=== PATIENT | female | born 1975 | race African-American/Black ===

== ENCOUNTER 2016-11-07 08:09 | Day surgery (SDC) | payer BC ==
--- NOTE | ~2016-11-07 | EGD ---
EGD REPORT [facility] [address] [id number] NAME: LEYDI HARRINGTON : [birth year] STATUS : REG [facility]#: [id number] AGE: 41 ADM/REG DATE : 11/07/16 MR#: [id number] REPORT SERV DATE: 11/07/16 DICTATED BY: RAEANN NARAYAN DATE: 11/07/16 REPORT STATUS : Draft TRANSCRIBED BY: [facility] DATE: 11/07/16 [facility] Center Patient Name: Leydi Harrington Date of : 1975 Attending MD: RAEANN NARAYAN MD Procedure Date No Time: 11/07/2016 Procedure: Upper GI endoscopy Indications: Epigastric abdominal pain Referring MD: KRIS GONZALEZ MD Medicines: Propofol per Anesthesia Complications: No immediate complications. Procedure: Pre-Anesthesia Assessment: - ASA Grade Assessment: II - A patient with mild systemic disease. After obtaining informed consent, the endoscope was passed under direct vision. Throughout the procedure, the patient's blood pressure, pulse, and oxygen saturations were monitored continuously. The GIF [id number] was introduced through the mouth, and advanced to the third part of duodenum. The upper GI endoscopy was accomplished without difficulty. The patient tolerated the procedure well. Findings: The exam was otherwise without abnormality. The cardia and gastric fundus were normal on retroflexion. Impression: - The examination was otherwise normal. Recommendation: - Return to my office in 1 month. Procedure Code(s): --- Professional --- 84163, Esophagogastroduodenoscopy, flexible, transoral; diagnostic, including collection of specimen(s) by brushing or washing, when performed (separate procedure) Diagnosis Code(s): --- Professional --- R10.13, Epigastric pain CPT copyright 2013 [employer]. All rights reserved. The codes documented in this report are preliminary and upon respiratory therapy director review may be revised to meet current compliance requirements. EGD REPORT [facility] [address] [address] NAME: LEYDI HARRINGTON : [birth year] STATUS : REG [facility]#: [id number] AGE: 41 ADM/REG DATE : 11/07/16 MR#: [id number] REPORT SERV DATE: 11/07/16 DICTATED BY: RAEANN NARAYAN. DATE: 11/07/16 REPORT STATUS : Draft TRANSCRIBED BY: [employer] DATE: 11/07/16 RAEANN NARAYAN MD 11/07/2016 9:45 AM This report has been signed electronically. Number of Addenda: 0 Note Initiated On: 11/07/2016 9:35 AM [address] [id number]
[~2016-11-07 08:09] MED LIST: MULTIPLE VIT PO; PRILO PO; [UNRECOGNIZED DRUG - OTHER] PO
== END 2016-11-07 23:59 | disposition home or self-care (01) ==
LOC: DMU 08:09
PROVIDERS: Internal Medicine Gastroenterology
PROC: 0DJ08ZZ Inspection of Upper Intestinal Tract, Via Natural or Artificial Opening Endoscopic (ICD-10-PCS; principal; 2016-11-07 10:00)
DX: R10.13 Epigastric pain (principal); E78.5 Hyperlipidemia, unspecified; Z98.891 History of uterine scar from previous surgery; Z98.51 Tubal ligation status; D64.9 Anemia, unspecified; Z88.2 Allergy status to sulfonamides; Z88.1 Allergy status to other antibiotic agents; E78.00 Pure hypercholesterolemia, unspecified; Z79.899 Other long term (current) drug therapy
CPT/HCPCS: 84703